=== PATIENT | male | born 1970 | race Caucasian/White ===

== ENCOUNTER 2021-08-02 19:50 | Emergency (ER) | payer OTHER ==
[~2021-08-02] VITALS: Ht 195.6 cm; Wt 124.7 kg
== END 2021-08-02 23:30 | disposition home or self-care (01) ==
LOC: ER 19:50
DX: S39.011A Strain of muscle, fascia and tendon of abdomen, initial encounter (principal); X58.XXXA Exposure to other specified factors, initial encounter
CPT/HCPCS: A9270; J1885

== ENCOUNTER → 2024-01-07 | Outpatient (CLI) | payer OTHER | END | disposition home or self-care (01) | LOC: LAB 13:42 → LAB SHORT 13:42 | DX: L08.9 Local infection of the skin and subcutaneous tissue, unspecified (principal) | CPT/HCPCS: 87070; 87077; 87186; 87205 ==